=== PATIENT | female | born 1970 | race Caucasian/White ===

== ENCOUNTER 2018-12-15 14:34 | Emergency (ER) | payer BC ==
[2018-12-15 14:54] VITALS: BP 119/74
--- NOTE | 2018-12-15 15:02 | UC ---
FLU HPI - HPI Summary HPI Summary: 48-year-old woman comes to clinic with a chief complaint of fevers chills and body aches for 2 days. Does have some rhinorrhea and a mild sore throat. No cough or chest congestion. She has not taken any medications for her condition yet. - History of Current Complaint Chief Complaint: UCRespiratory Stated Complaint: FEVER, CHILLS, BODY ACHES Time Seen by Provider: 12/15/18 14:55 Pain Intensity: 5 - Allergy/Home Medications Allergies/Adverse Reactions: Allergies Allergy/AdvReac Type Severity Reaction Status Date / Time No Known Allergies Allergy Verified 12/15/18 14:49 Home Medications: Home Medications Venlafaxine EXT RELEASE CAP* [Effexor Xr CAP*] 1 tab BID 12/15/18 [History Confirmed 12/15/18] PMH/Surg Hx/FS Hx/Imm Hx Previously Healthy: Yes - Surgical History Surgical History: Yes Surgery Procedure, Year, and Place: . Tonsils - Family History Known Family History: Positive: Non-Contributory - Social History Alcohol Use: Occasionally Substance Use Type: None Smoking Status (MU): Never Smoked Tobacco Review of Systems All Other Systems Reviewed And Are Negative: Yes Constitutional: Positive: Fever, Chills Skin: Positive: Negative Eyes: Positive: Negative ENT: Positive: Sore Throat, Nasal Discharge, Sinus Congestion Respiratory: Positive: Negative Cardiovascular: Positive: Negative Gastrointestinal: Positive: Negative Motor: Positive: Negative Neurovascular: Positive: Negative Musculoskeletal: Positive: Myalgia Neurological: Positive: Negative Psychological: Positive: Negative Is Patient Immunocompromised?: No Physical Exam Triage Information Reviewed: Yes Appearance: No Pain Distress, Well-Nourished, Ill-Appearing - MILD Vital Signs: Initial Vital Signs Temp 98.3 F 12/15/18 14:50 Pulse 100 12/15/18 14:50 Resp 16 12/15/18 14:50 BP 119/74 12/15/18 14:50 Pulse Ox 100 12/15/18 14:50 Vital Signs Reviewed: Yes Eye Exam: Normal Eyes: Positive: Conjunctiva Clear ENT: Positive: Pharyngeal erythema, Nasal congestion, Nasal drainage, TMs normal Neck exam: Normal Neck: Positive: Supple Respiratory: Positive: Lungs clear, Normal breath sounds, No respiratory distress Cardiovascular: Positive: RRR Musculoskeletal Exam: Normal Musculoskeletal: Positive: Strength Intact, ROM Intact Neurological Exam: Normal Neurological: Positive: Alert, Muscle Tone Normal Psychological Exam: Normal Psychological: Positive: Age Appropriate Behavior Skin Exam: Normal Flu Course/Dx - Course Course Of Treatment: Her rapid influenza's were negative. I discussed all of this with the patient. At this time we will continue symptomatic treatment. Patient denies any dysuria or any concern of UTI she has no chest congestion or any signs of a pneumonia. SHe has generalized myalgias. She noticed the reevaluated if her condition worsens or does not improve. - Differential Dx/Diagnosis Provider Diagnosis: Influenza-like illness Discharge - Sign-Out/Discharge Documenting (check all that apply): Patient Departure All imaging exams completed and their final reports reviewed: No Studies - Discharge Plan Condition: Stable Disposition: HOME Patient Education Materials: Upper Respiratory Infection (ED) Referrals: Daja Zaman [Primary Care Provider] - Additional Instructions: FOLLOW UP WITH YOUR DOCTOR IF NOT COMPLETELY IMPROVED. GET RECHECKED SOONER WITH ANY WORSENING OF YOUR CONDITION OR QUESTIONS OR CONCERNS. - Billing Disposition and Condition Condition: STABLE Disposition: Home
[2018-12-15 15:11] LABS: Influenza A Molecular NEGATIVE (Negative); Influenza B Molecular NEGATIVE (Negative)
== END 2018-12-15 15:31 | disposition home or self-care (01) ==
LOC: UCCORT 14:34
DX: J11.1 Influenza due to unidentified influenza virus with other respiratory manifestations (principal)
CPT/HCPCS: 99211; G0463

== ENCOUNTER 2019-04-03 08:22 | Emergency (ER) | payer BC ==
[2019-04-03 09:05] VITALS: BP 132/70
--- NOTE | 2019-04-03 10:43 | UC ---
General HPI - HPI Summary HPI Summary: Pain and R facial swelling last couple days, worse. No fever / chills. R upper teeth hurt. No fever. No nasal drainage. Teeth feel better with percussion / jaw clench. No trismus. Appetite / po ok. No rash, nor redness, not hot. Plans to see dentist, but closed this afternoon. - History of Current Complaint Chief Complaint: UCDentalProblem Stated Complaint: SINUS CONCERN Time Seen by Provider: 04/03/19 09:39 Hx Obtained From: Patient Pain Intensity: 4 - Allergy/Home Medications Allergies/Adverse Reactions: Allergies Allergy/AdvReac Type Severity Reaction Status Date / Time No Known Allergies Allergy Verified 04/03/19 09:02 Home Medications: Home Medications Ibuprofen TAB* [Advil TAB*] 800 mg PO Q8H PRN 04/03/19 [History Confirmed ] Naproxen Sodium/Pseudoephedrin [Aleve Cold and Sinus Caplet] 1 each PO Q12H PRN 04/03/19 [History Confirmed 04/03/19] PMH/Surg Hx/FS Hx/Imm Hx Previously Healthy: Yes - Surgical History Surgical History: Yes Surgery Procedure, Year, and Place: . Tonsils - Family History Known Family History: Positive: Non-Contributory - Social History Alcohol Use: Occasionally Substance Use Type: None Smoking Status (MU): Never Smoked Tobacco Review of Systems All Other Systems Reviewed And Are Negative: Yes Constitutional: Positive: Other - see hpi Skin: Positive: Other - see hpi Eyes: Positive: Other - see hpi ENT: Positive: Other - see hpi Respiratory: Positive: Other - see hpi Cardiovascular: Positive: Negative Gastrointestinal: Positive: Negative Genitourinary: Positive: Negative Motor: Positive: Negative Neurovascular: Positive: Negative Musculoskeletal: Positive: Negative Neurological: Positive: Negative Psychological: Positive: Negative Is Patient Immunocompromised?: No Physical Exam Triage Information Reviewed: Yes Appearance: Well-Appearing, Well-Nourished Vital Signs: Initial Vital Signs Temp 97.7 F 04/03/19 09:01 Pulse 70 04/03/19 09:01 Resp 15 04/03/19 09:01 BP 132/70 04/03/19 09:01 Pulse Ox 100 04/03/19 09:01 Vital Signs Reviewed: Yes Eye Exam: Normal ENT Exam: Other - R maxillary region puffy / swollen. without point fluctuance. Not hot to touch. CN's ok. Teeth - s/p spiritism, but in general good shape. No dental tenderness. No drainage or bad taste. tongue not elevated. Post pharyx ok. Neck supple, without adenopathy. Neck exam: Normal Respiratory Exam: Normal Respiratory: Positive: Chest non-tender, Normal breath sounds Cardiovascular Exam: Normal Cardiovascular: Positive: RRR, No Murmur, Pulses Normal, Brisk Capillary Refill Abdominal Exam: Normal Musculoskeletal Exam: Normal Neurological Exam: Normal Psychological Exam: Normal Skin Exam: Normal - see above ent o/w ok Course/Dx - Course Course Of Treatment: REviewed coa / tx plan Questions as posed answered to the best of my ability. f/ dentist as scheduled. Will also call ent to schedule f/u Suspect more sinus related than dental, but will f/u with both specialties as above. - Diagnoses Provider Diagnosis: Sinusitis Discharge - Sign-Out/Discharge Documenting (check all that apply): Patient Departure All imaging exams completed and their final reports reviewed: No Studies - Discharge Plan Condition: Stable Disposition: HOME Prescriptions: Amoxicillin/Clavulanate TAB* [Augmentin TAB 875*] 875 mg PO BID 10 Days #20 tab Fluticasone NASAL SPRAY 50MCG* [Flonase NASAL SPRAY 50MCG*] 2 spray BOTH NARES DAILY 14 Days #1 btl Ibuprofen TAB* [Motrin TAB* 600 MG] 600 mg PO Q8H PRN #30 tab PRN Reason: Pain Patient Education Materials: Sinusitis (ED) Referrals: Daja Zaman [Primary Care Provider] - Additional Instructions: Please follow up with your dentist next week. Schedule an appointment with ENT physician if possible for next week. Please go to the Emergency Department for worse or new problems. Hydrate. - Billing Disposition and Condition Condition: STABLE Disposition: Home
== END 2019-04-03 10:16 | disposition home or self-care (01) ==
LOC: UCCORT 08:22
DX: J32.9 Chronic sinusitis, unspecified (principal)
CPT/HCPCS: 99212; G0463